=== PATIENT | male | born 1940 | race Caucasian/White ===

== ENCOUNTER → 2016-10-07 | Outpatient (CLI) | payer MEDICARE, OTHER ==
[2016-10-07 09:54] LABS: Basophils # (auto) 0 uL; Basophils % (auto) 0.2 % (0.0-2.0); DEFINITIVE VIEW TRANSMISSION; Eosinophils # (auto) 0 uL; Eosinophils % (auto) 0.9 % (0.0-7.0); Hematocrit 37.1 % (41.0-53.0); Hemoglobin 12.1 g/dL (13.5-17.5); Lymphocytes # (auto) 1.3 uL; Mean Corpuscular Hemoglobin 34.2 pg (28.0-32.0); Mean Corpuscular Hgb Conc. 32.7 g/dL (32.0-36.0); Mean Corpuscular Volume 104.7 fL (80.0-100.0); Mean Platelet Volume 6.9 fL (7.4-10.4); Monocytes # (auto) 0.6 uL; Monocytes % (auto) 13.7 % (0.0-12.0); Neutrophils # (auto) 2.2 uL; Neutrophils % (auto) 54.2 % (37.0-80.0); Platelet Count (auto) 164 10^3/uL (140-450); Red Cell Distribution Width 15.4 % (11.6-16.0); White Blood Cell 4.1 10^3/uL (4.4-10.8)
[2016-10-07 10:12] LABS: Albumin 3.2 g/dL (3.4-5.0); BUN/Creatinine Ratio 26.9; Bilirubin, Total 0.4 mg/dL (0.2-1.0); Calcium 8.6 mg/dL (8.5-10.1); Potassium 3.9 mmol/L (3.5-5.1); Total Protein 6.6 g/dL (6.4-8.2)
[2016-10-07 11:40] LABS: Urine Bilirubin Negative (Negative); Urine Blood TRACE /uL (Negative); Urine Color Yellow (Yellow); Urine Glucose Normal (Normal); Urine Ketone TRACE (Negative); Urine Mucus FEW (None Seen); Urine Nitrite Negative (Negative); Urine RBC 17 /hpf (0 - 3); Urine Squamous Epithelial Cell FEW /hpf (<5); Urine Urobilinogen Normal (Negative)
== END | disposition home or self-care (01) ==
LOC: LAB 08:59
PROVIDERS: ATTEND Family Medicine
DX: E78.5 Hyperlipidemia, unspecified (principal); R56.9 Unspecified convulsions; N17.9 Acute kidney failure, unspecified; D51.9 Vitamin B12 deficiency anemia, unspecified
CPT/HCPCS: 36415; 80053; 80061; 80164; 81001; 82306; 84443; 85025; 87086

== ENCOUNTER 2016-11-29 10:27 | Emergency (ER) | payer MEDICARE, OTHER ==
[~2016-11-29] VITALS: Ht 170.2 cm; Wt 68.0 kg
[2016-11-29 11:04] LABS: Basophils # (auto) 0 uL; Basophils % (auto) 0.3 % (0.0-2.0); Eosinophils # (auto) 0 uL; Eosinophils % (auto) 0.4 % (0.0-7.0); Hematocrit 35.8 % (41.0-53.0); Hemoglobin 12.1 g/dL (13.5-17.5); Lymphocytes # (auto) 1.2 uL; Lymphocytes % (auto) 23.7 % (10.0-50.0); Mean Corpuscular Hgb Conc. 33.7 g/dL (32.0-36.0); Mean Corpuscular Volume 100.8 fL (80.0-100.0); Mean Platelet Volume 7.2 fL (7.4-10.4); Monocytes # (auto) 0.8 uL; Monocytes % (auto) 16.1 % (0.0-12.0); Neutrophils # (auto) 2.9 uL; Neutrophils % (auto) 59.5 % (37.0-80.0); Platelet Count (auto) 142 10^3/uL (140-450); Red Cell Distribution Width 13.6 % (11.6-16.0); White Blood Cell 4.9 10^3/uL (4.4-10.8)
[2016-11-29 11:34] LABS: Alkaline Phosphatase 56 U/L (45-117); Anion Gap 6 (5-15); Aspartate Aminotransferase 17 U/L (15-37); BUN/Creatinine Ratio 22.4; Bilirubin, Total 0.4 mg/dL (0.2-1.0); Blood Urea Nitrogen 34 mg/dL (7-18); Calcium 8.5 mg/dL (8.5-10.1); Carbon Dioxide 30 mmol/L (21-32); Chloride 109 mmol/L (98-107); GFR African American 58 mL/min; GFR Non-African American 48 mL/min; Glucose 83 mg/dL (74-106); Magnesium 2.8 mg/dL (1.6-2.6); Potassium 4.7 mmol/L (3.5-5.1); Sodium 145 mmol/L (136-145); Total Protein 6.5 g/dL (6.4-8.2)
[2016-11-29 11:36] LABS: B-Type Natriuretic Peptide 87.26 pg/mL (0-100)
[2016-11-29 11:38] LABS: Temperature: 23.1 C (20.0-25.0)
[2016-11-29 12:55] VITALS: BP 134/69
== END 2016-11-29 13:31 | disposition home or self-care (01) ==
LOC: EDBD 10:27 → ER 10:34
DX: R53.1 Weakness (principal); M79.89 Other specified soft tissue disorders; Z86.73 Personal history of transient ischemic attack (TIA), and cerebral infarction without residual deficits; Z88.0 Allergy status to penicillin
CPT/HCPCS: 36415; 70450; 71010; 80053; 83735; 83880; 84484; 85025; 93005; 94761

== ENCOUNTER 2017-09-21 14:35 | Inpatient (IN) | payer MEDICARE ==
[~2017-09-21] VITALS: Ht 172.7 cm; Wt 77.6 kg
[2017-09-21 15:42] LABS: Basophils # (auto) 0 uL; Eosinophils # (auto) 0 uL; Hemoglobin 12.9 g/dL (13.5-17.5); White Blood Cell 6.5 10^3/uL (4.4-10.8)
[2017-09-21 15:45] LABS: Alanine Aminotransferase < 6 U/L (16-61); Alkaline Phosphatase 46 U/L (45-117); Anion Gap 10 (5-15); Aspartate Aminotransferase 18 U/L (15-37); BUN/Creatinine Ratio 23.4; Basophils % (auto) 0.3 % (0.0-2.0); Bilirubin, Total 0.4 mg/dL (0.2-1.0); Blood Urea Nitrogen 26 mg/dL (7-18); Calcium 7.8 mg/dL (8.5-10.1); Carbon Dioxide 21 mmol/L (21-32); Chloride 116 mmol/L (98-107); Eosinophils % (auto) 0.3 % (0.0-7.0); GFR African American 83 mL/min; GFR Non-African American 68 mL/min; Glucose 104 mg/dL (74-106); Hematocrit 38.8 % (41.0-53.0); Lymphocytes % (auto) 16.2 % (10.0-50.0); Magnesium 2.6 mg/dL (1.6-2.6); Mean Corpuscular Hgb Conc. 33.3 g/dL (32.0-36.0); Mean Corpuscular Volume 102.1 fL (80.0-100.0); Monocytes # (auto) 1.6 uL; Neutrophils # (auto) 3.8 uL; Nucleated Red Blood Cells % 0.1 %; Platelet Count (auto) 75 10^3/uL (140-450); Potassium 3.7 mmol/L (3.5-5.1); Red Cell Distribution Width 14.2 % (11.8-14.3); Sodium 147 mmol/L (136-145); Total Protein 6.5 g/dL (6.4-8.2)
[2017-09-21 15:46] LABS: Monocytes % (auto) 24.2 % (0.0-12.0)
[2017-09-21 17:38] LABS: Hematocrit 36.5 % (41.0-53.0); Hemoglobin 12.2 g/dL (13.5-17.5); Mean Corpuscular Hemoglobin 33.6 pg (28.0-32.0); Mean Corpuscular Hgb Conc. 33.4 g/dL (32.0-36.0); Mean Corpuscular Volume 100.8 fL (80.0-100.0); Platelet Count (auto) 77 10^3/uL (140-450); Red Blood Cells 3.62 10^6/uL (4.5-5.90); Red Cell Distribution Width 14.4 % (11.8-14.3); White Blood Cell 6.2 10^3/uL (4.4-10.8)
[2017-09-21 17:43] LABS: Basophils % (manual) 0 (0.0-2.0); Blast Cells 0; Metamyelocytes % 0; Myelocytes % 0; Promyelocytes % 0; Reactive Lymphocytes 0
[2017-09-21 18:52] LABS: Band Neutrophils % (manual) 3; Eosinophils % (manual) 1 (0-7); Lymphocytes % (manual) 12 (10.0-50.0); Monocytes % (manual) 18 (0-12)
[2017-09-21 18:57] LABS: Urine Bacteria NONE SEEN /hpf (None Seen); Urine Blood Negative /uL (Negative); Urine Specific Gravity 1.027 (1.001-1.035); Urine WBC 1 /hpf (0 - 3)
[2017-09-21] MEDS ORDERED: TOPI100T68 PO (20:30)
[2017-09-21] MEDS ORDERED: LATA0.0020 EACHEYE (20:31)
[2017-09-21] MEDS ORDERED: SIMV-13 PO (20:33)
[2017-09-21] MEDS ORDERED: DONE10TA40 PO (20:33)
[2017-09-21] MEDS ORDERED: DIVA500T59 PO (20:34)
[2017-09-21] MEDS ORDERED: TIMO0.5S49 EACHEYE (20:34)
[2017-09-21] MEDS ORDERED: CARB100C3 PO (20:34)
[2017-09-21] MEDS ORDERED: CARBIDOPA W LEVODOPA 25/100mg TABLET PO ONE (21:00)
[2017-09-21 21:45] VITALS: BP 157/81
[2017-09-21] MEDS ORDERED: LORazepam 2MG/ML-1ML VIAL IV ONE (21:45)
[2017-09-21] MEDS ORDERED: NITROGLYCERIN 0.4 MG SL TAB SL PRN (22:30)
[2017-09-21] MEDS ORDERED: ONDANSETRON HCL 4 MG/2 ML VIAL IV PRN (22:30)
[2017-09-21] MEDS ORDERED: DOCUSATE SOD 100 MG CAP PO PRN (22:30)
[2017-09-21] MEDS ORDERED: cloNIDine HCL 0.1 MG TAB PO PRN (22:30)
[2017-09-21] MEDS ORDERED: ACETAMINOPHEN 325 MG TAB PO PRN (22:30)
[2017-09-21] MEDS ORDERED: TEMAZEPAM 15 MG CAP PO PRN (22:30)
[2017-09-21] MEDS ORDERED: MORPHINE SULFATE 4 MG/ML SYR/VIAL IV PRN (22:30)
[2017-09-21] MEDS ORDERED: carBAMazepine 200 MG TAB PO ONE (22:30)
[2017-09-21 23:05] LABS: BUN/Creatinine Ratio 22.9; Calcium 8.2 mg/dL (8.5-10.1); Potassium 3.5 mmol/L (3.5-5.1)
[2017-09-22 05:37] VITALS: BP 127/57
[2017-09-22] MEDS ORDERED: carBAMazepine 200 MG TAB PO SCH (06:00)
[2017-09-22] MEDS ORDERED: CARBIDOPA W LEVODOPA 25/100mg TABLET PO SCH (06:00)
[2017-09-22] MEDS: LEVOTHYROXINE SODIUM 50 MCG TAB PO SCH (06:00)
[2017-09-22 07:14] LABS: Hemoglobin 13.2 g/dL (13.5-17.5)
[2017-09-22 07:17] LABS: Hematocrit 39.9 % (41.0-53.0); Mean Corpuscular Volume 103.1 fL (80.0-100.0); Platelet Count (auto) 79 10^3/uL (140-450); Red Blood Cells 3.87 10^6/uL (4.5-5.90); Red Cell Distribution Width 14.3 % (11.8-14.3); White Blood Cell 7.3 10^3/uL (4.4-10.8)
[2017-09-22 07:24] LABS: Basophils % (manual) 0 (0.0-2.0); Blast Cells 0; Eosinophils % (manual) 0 (0-7); Metamyelocytes % 0; Myelocytes % 0; Promyelocytes % 0; Reactive Lymphocytes 0
[2017-09-22 07:29] LABS: Alanine Aminotransferase < 6 U/L (16-61); Albumin 2.9 g/dL (3.4-5.0); Alkaline Phosphatase 44 U/L (45-117); Anion Gap 9 (5-15); Aspartate Aminotransferase 21 U/L (15-37); BUN/Creatinine Ratio 22.8; Bilirubin, Total 0.5 mg/dL (0.2-1.0); Blood Urea Nitrogen 23 mg/dL (7-18); Calcium 8.4 mg/dL (8.5-10.1); Carbon Dioxide 20 mmol/L (21-32); Chloride 116 mmol/L (98-107); GFR African American 92 mL/min; GFR Non-African American 76 mL/min; Glucose 81 mg/dL (74-106); Potassium 3.7 mmol/L (3.5-5.1); Sodium 145 mmol/L (136-145); Total Protein 6.5 g/dL (6.4-8.2)
[2017-09-22 08:00] VITALS: BP 130/63
[2017-09-22 08:28] LABS: Band Neutrophils % (manual) 4; Lymphocytes % (manual) 12 (10.0-50.0); Monocytes % (manual) 18 (0-12)
[2017-09-22 09:00] VITALS: BP 130/63
[2017-09-22] MEDS ORDERED: LORazepam 2MG/ML-1ML VIAL IV PRN (09:30)
[2017-09-22] MEDS: FAMOTIDINE 20 MG TAB PO SCH ×2 (09:47→22:28)
[2017-09-22] MEDS: ENOXAPARIN SOD 40 MG/0.4 ML SYRINGE SC SCH (09:48)
[2017-09-22] MEDS: ASPirin-EC 81 mg tab PO SCH (09:48)
[2017-09-22] MEDS: TIMOLOL MAL 0.5% OPTH(EYE) SOL 5ML EACHEYE SCH (09:48)
[2017-09-22] MEDS ORDERED: TOPIRAMATE 100 MG TAB PO SCH (10:00)
[2017-09-22 10:09] LABS: Cholesterol 129 mg/dL (< 200); HDL Cholesterol 44 mg/dL (40-59); LDL Cholesterol 79 mg/dL (< 100); Triglycerides 101 mg/dL (< 150)
[2017-09-22 10:48] LABS: Folate (Folic Acid) 10.53 ng/mL (5.38-24)
[2017-09-22 13:00] VITALS: BP 121/65
[2017-09-22] MEDS: CARBIDOPA W LEVODOPA 25/100mg TABLET PO SCH ×2 (14:06→22:28)
[2017-09-22 17:00] VITALS: BP 126/66
[2017-09-22 22:00] VITALS: BP 155/82
[2017-09-22] MEDS ORDERED: ATORVASTATIN 20 MG TAB PO SCH (22:00)
[2017-09-22] MEDS: DONEPEZIL HYDROCHLORIDE 5 MG TAB PO SCH (22:27)
[2017-09-22] MEDS: ATORVASTATIN 20 MG TAB PO SCH (22:28)
[2017-09-22] MEDS ORDERED: CARB25TA3 PO (23:59)
[2017-09-23] MEDS ORDERED: DIVA500T53 PO (00:01)
[2017-09-23] MEDS ORDERED: TOPI100T68 PO ×2 (00:04)
[2017-09-23] MEDS: CARBIDOPA W LEVODOPA 25/100mg TABLET PO SCH ×3 (05:45→22:07)
[2017-09-23] MEDS: LEVOTHYROXINE SODIUM 50 MCG TAB PO SCH (06:00)
[2017-09-23 08:00] VITALS: BP 143/79
[2017-09-23 09:25] VITALS: BP 143/79
[2017-09-23] MEDS: FAMOTIDINE 20 MG TAB PO SCH ×2 (10:54→22:06)
[2017-09-23] MEDS: ENOXAPARIN SOD 40 MG/0.4 ML SYRINGE SC SCH (10:55)
[2017-09-23] MEDS: ASPirin-EC 81 mg tab PO SCH (10:55)
[2017-09-23] MEDS: TIMOLOL MAL 0.5% OPTH(EYE) SOL 5ML EACHEYE SCH (10:58)
[2017-09-23] MEDS: HYDROcodone-ACET 5/325MG TAB PO PRN ×3 (11:20→22:06)
[2017-09-23 15:18] LABS: INR 1.05 (0.9-1.15); Partial Thromboplastin Time 35.5 sec (22.64-33.71); Prothrombin Time 11.5 sec (9.37-12.3)
[2017-09-23] MEDS: TOPIRAMATE 100 MG TAB PO SCH ×2 (16:17→22:06)
[2017-09-23 17:00] VITALS: BP 155/78
[2017-09-23 22:00] VITALS: BP 152/75
[2017-09-23] MEDS: DONEPEZIL HYDROCHLORIDE 5 MG TAB PO SCH (22:06)
[2017-09-23] MEDS: ATORVASTATIN 20 MG TAB PO SCH (22:06)
[2017-09-23] MEDS ORDERED: ENOXAPARIN SOD 100 MG/1 ML SYRINGE SC ONE (22:30)
[2017-09-24 05:04] VITALS: BP 103/63
[2017-09-24] MEDS: TOPIRAMATE 100 MG TAB PO SCH ×3 (05:42→22:46)
[2017-09-24] MEDS: CARBIDOPA W LEVODOPA 25/100mg TABLET PO SCH ×2 (05:42→22:46)
[2017-09-24] MEDS: LEVOTHYROXINE SODIUM 50 MCG TAB PO SCH (06:22)
[2017-09-24 08:00] VITALS: BP 136/61
[2017-09-24 09:00] VITALS: BP 136/61
[2017-09-24] MEDS: TIMOLOL MAL 0.5% OPTH(EYE) SOL 5ML EACHEYE SCH (09:06)
[2017-09-24] MEDS: ASPirin-EC 81 mg tab PO SCH (09:07)
[2017-09-24] MEDS: FAMOTIDINE 20 MG TAB PO SCH (09:07)
[2017-09-24] MEDS ORDERED: PATIENTS OWN MEDICATION (XARELTO 15 MG) PO SCH (10:00)
[2017-09-24] MEDS ORDERED: ENOXAPARIN SOD 100 MG/1 ML SYRINGE SC SCH (10:00)
[2017-09-24 17:00] VITALS: BP 107/54
[2017-09-24 20:00] VITALS: BP 161/66
[2017-09-24 22:14] VITALS: BP 161/66
[2017-09-24] MEDS: RIVAROXABAN 15 MG TAB PO SCH (22:46)
[2017-09-24] MEDS: DONEPEZIL HYDROCHLORIDE 5 MG TAB PO SCH (22:47)
[2017-09-24] MEDS: ATORVASTATIN 20 MG TAB PO SCH (22:47)
[2017-09-25] VITALS (7 sets, daily range): BP systolic 102–149; BP diastolic 44–69
[2017-09-25 06:15] LABS: BUN/Creatinine Ratio 18.8; Calcium 8.2 mg/dL (8.5-10.1); Potassium 3.5 mmol/L (3.5-5.1)
[2017-09-25] MEDS: LEVOTHYROXINE SODIUM 50 MCG TAB PO SCH (06:15)
[2017-09-25] MEDS: CARBIDOPA W LEVODOPA 25/100mg TABLET PO SCH ×3 (06:15→21:16)
[2017-09-25] MEDS: TOPIRAMATE 100 MG TAB PO SCH (06:15)
[2017-09-25 06:18] LABS: Basophils # (auto) 0 uL; Basophils % (auto) 0.2 % (0.0-2.0); Eosinophils # (auto) 0 uL; Eosinophils % (auto) 0.3 % (0.0-7.0); Hematocrit 38.2 % (41.0-53.0); Hemoglobin 12.7 g/dL (13.5-17.5); Lymphocytes # (auto) 0.7 uL; Lymphocytes % (auto) 8.4 % (10.0-50.0); Mean Corpuscular Hemoglobin 33.6 pg (28.0-32.0); Mean Corpuscular Hgb Conc. 33.3 g/dL (32.0-36.0); Mean Corpuscular Volume 100.9 fL (80.0-100.0); Monocytes # (auto) 1.4 uL; Monocytes % (auto) 17.1 % (0.0-12.0); Neutrophils # (auto) 6.2 uL; Platelet Count (auto) 133 10^3/uL (140-450); Red Blood Cells 3.79 10^6/uL (4.5-5.90); Red Cell Distribution Width 13.7 % (11.8-14.3); White Blood Cell 8.3 10^3/uL (4.4-10.8)
[2017-09-25] MEDS: TIMOLOL MAL 0.5% OPTH(EYE) SOL 5ML EACHEYE SCH (09:23)
[2017-09-25] MEDS: RIVAROXABAN 15 MG TAB PO SCH ×2 (09:23→21:15)
[2017-09-25] MEDS: PANTOPRAZOLE 40 MG TAB PO SCH (09:24)
[2017-09-25] MEDS: ASPirin-EC 81 mg tab PO SCH (09:24)
[2017-09-25] MEDS: BOOST PLUS 8 ounce PO SCH (18:00)
[2017-09-25] MEDS: ATORVASTATIN 20 MG TAB PO SCH (21:16)
[2017-09-25] MEDS: DONEPEZIL HYDROCHLORIDE 5 MG TAB PO SCH (21:16)
[2017-09-26] VITALS (7 sets, daily range): BP systolic 104–141; BP diastolic 54–72
[2017-09-26] MEDS: LEVOTHYROXINE SODIUM 50 MCG TAB PO SCH (06:41)
[2017-09-26] MEDS: CARBIDOPA W LEVODOPA 25/100mg TABLET PO SCH ×2 (06:41→13:14)
[2017-09-26] MEDS: BOOST PLUS 8 ounce PO SCH ×2 (07:46→17:36)
[2017-09-26] MEDS: PANTOPRAZOLE 40 MG TAB PO SCH (09:50)
[2017-09-26] MEDS: RIVAROXABAN 15 MG TAB PO SCH ×2 (09:50→21:21)
[2017-09-26] MEDS: ASPirin-EC 81 mg tab PO SCH (09:51)
[2017-09-26] MEDS: TIMOLOL MAL 0.5% OPTH(EYE) SOL 5ML EACHEYE SCH (09:51)
[2017-09-26] MEDS: TOPIRAMATE 100 MG TAB PO SCH (21:21)
[2017-09-26] MEDS: ATORVASTATIN 20 MG TAB PO SCH (21:22)
[2017-09-26] MEDS: DONEPEZIL HYDROCHLORIDE 5 MG TAB PO SCH (21:22)
[2017-09-27 04:49] VITALS: BP 118/62
[2017-09-27] MEDS: LEVOTHYROXINE SODIUM 50 MCG TAB PO SCH (06:46)
[2017-09-27 09:00] VITALS: BP 148/58
[2017-09-27] MEDS: RIVAROXABAN 15 MG TAB PO SCH (09:35)
[2017-09-27] MEDS: ASPirin-EC 81 mg tab PO SCH (09:35)
[2017-09-27] MEDS: TOPIRAMATE 100 MG TAB PO SCH (09:35)
[2017-09-27] MEDS: TIMOLOL MAL 0.5% OPTH(EYE) SOL 5ML EACHEYE SCH (09:35)
[2017-09-27] MEDS: PANTOPRAZOLE 40 MG TAB PO SCH (09:35)
[2017-09-27] MEDS: BOOST PLUS 8 ounce PO SCH ×2 (09:36→18:55)
[2017-09-27] MEDS ORDERED: TOPI100T29 PO (10:17)
[2017-09-27 13:00] VITALS: BP 94/52
[2017-09-27 13:20] VITALS: BP 94/52
[2017-09-27 17:00] VITALS: BP 119/62
== END 2017-09-27 18:56 | DRG 299 ==
LOC: ER 14:35 → EDBD 14:35 → TELE 14:36 → TELE-WESTW 23:37 → WEST WING 09-23 17:56
PROVIDERS: ADMIT Nurse Practitioner; ATTEND Internal Medicine
DX: I82.411 Acute embolism and thrombosis of right femoral vein (principal); G93.41 Metabolic encephalopathy; E87.0 Hyperosmolality and hypernatremia; E44.0 Moderate protein-calorie malnutrition; W18.39XA Other fall on same level, initial encounter; G30.9 Alzheimer's disease, unspecified; Z66 Do not resuscitate; Z51.5 Encounter for palliative care; F02.80 Dementia in other diseases classified elsewhere, unspecified severity, without behavioral disturbance, psychotic disturbance, mood disturbance, and anxiety; D69.6 Thrombocytopenia, unspecified; E03.9 Hypothyroidism, unspecified; E78.5 Hyperlipidemia, unspecified; D64.9 Anemia, unspecified; I11.9 Hypertensive heart disease without heart failure; G40.909 Epilepsy, unspecified, not intractable, without status epilepticus; H35.30 Unspecified macular degeneration; G31.83 Neurocognitive disorder with Lewy bodies; R07.81 Pleurodynia; Z88.0 Allergy status to penicillin; Z79.899 Other long term (current) drug therapy; Z82.49 Family history of ischemic heart disease and other diseases of the circulatory system; Y93.89 Activity, other specified; Y92.89 Other specified places as the place of occurrence of the external cause; Y99.8 Other external cause status; Z68.26 Body mass index [BMI] 26.0-26.9, adult
CPT/HCPCS: 36415; 70450; 70551; 71045; 71101; 72125; 72131; 80048; 80053; 80061; 81001; 82607; 82746; 83735; 83880; 84443; 84484; 85007; 85025; 85027; 85379; 85610; 85730; 87040; 87081; 87493; 87804; 93005; 93306; 93886; 93970; 95819; 96374; 97163

== ENCOUNTER → 2018-02-21 | Outpatient (CLI) | payer MEDICARE ==
[~2018-02-21] MED LIST: CARB25TA3 PO; DIVA500T53 PO; DONE10TA40 PO; LATA0.0020 EACHEYE; SIMV-13 PO; TIMO0.5S49 EACHEYE; TOPI100T29 PO
[2018-02-21 14:10] LABS: Basophils # (auto) 0 uL; Basophils % (auto) 0.5 % (0.0-2.0); Eosinophils # (auto) 0.1 uL; Eosinophils % (auto) 1.4 % (0.0-7.0); Hematocrit 38.6 % (41.0-53.0); Lymphocytes # (auto) 0.9 uL; Lymphocytes % (auto) 22.6 % (10.0-50.0); Mean Corpuscular Hgb Conc. 33.7 g/dL (32.0-36.0); Monocytes # (auto) 0.4 uL; Monocytes % (auto) 9.6 % (0.0-12.0); Neutrophils # (auto) 2.7 uL; Neutrophils % (auto) 65.9 % (37.0-80.0); Nucleated Red Blood Cells % 0.1 %; Platelet Count (auto) 136 10^3/uL (140-450); Red Blood Cells 4.07 10^6/uL (4.5-5.90); Red Cell Distribution Width 13.8 % (11.8-14.3); White Blood Cell 4.1 10^3/uL (4.4-10.8)
[2018-02-21 14:12] LABS: Urine Bacteria NONE SEEN /hpf (None Seen); Urine Blood Negative /uL (Negative); Urine Mucus FEW (None Seen); Urine Specific Gravity 1.016 (1.001-1.035); Urine WBC 1 /hpf (0 - 3)
[2018-02-21 14:50] LABS: Albumin 3.3 g/dL (3.4-5.0); Calcium 8.2 mg/dL (8.5-10.1); Potassium 3.8 mmol/L (3.5-5.1)
[2018-02-21 14:53] LABS: BUN/Creatinine Ratio 15.4
[2018-02-21 14:55] LABS: Bilirubin, Total 0.4 mg/dL (0.2-1.0); Total Protein 6.5 g/dL (6.4-8.2)
== END | disposition home or self-care (01) ==
LOC: LAB 13:29
PROVIDERS: ATTEND Nurse Practitioner
DX: E78.5 Hyperlipidemia, unspecified (principal); Z88.0 Allergy status to penicillin
CPT/HCPCS: 36415; 80053; 81001; 84443; 85025